=== PATIENT | female | born 1965 | race Caucasian/White ===

== ENCOUNTER 2020-03-21 18:19 | Observation (INO) | payer OTHER ==
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
[2020-03-21] MEDS ORDERED: HYDROmorphone 0.5 MG/0.5 ML Syringe IVPUSH ONE (18:53)
[2020-03-21] MEDS ORDERED: FLU VACC QS2020-21(6MOS UP)/PF 60 MCG/0.5 ML SYRINGE IM ONE (19:00)
[2020-03-21] MEDS ORDERED: Sodium Chloride 0.9% 10 ML Syringe FLUSH PRN (19:02)
[2020-03-21] MEDS ORDERED: Iopamidol 612 MG/ML 100 ML Bottle IVPUSH ONE (19:02)
[2020-03-21] MEDS ORDERED: Iopamidol 612 MG/ML 50 ML SDV IVPUSH ONE (19:02)
[2020-03-21] MEDS: Sodium Chloride 0.9% 10 ML Syringe FLUSH PRN (20:12)
[2020-03-21] MEDS ORDERED: Ibuprofen 400 MG Tab PO PRN (23:17)
[2020-03-21] MEDS ORDERED: Ondansetron 4 MG/2 ML SDV IVPUSH PRN (23:21)
[2020-03-22] MEDS: HYDROmorphone 0.5 MG/0.5 ML Syringe IVPUSH PRN ×2 (02:24→07:48)
[2020-03-22] MEDS: Sodium Chloride 0.9% 10 ML Syringe FLUSH PRN (07:51)
[2020-03-22] MEDS: Ibuprofen 400 MG Tab PO SCH ×2 (08:18→13:54)
[2020-03-22] MEDS: Acetaminophen 325 MG Tab PO SCH ×2 (08:19→13:54)
[2020-03-22] MEDS ORDERED: Rosuvastatin 10 MG Tab PO SCH (09:00)
[2020-03-22] MEDS ORDERED: VENLAFAXINE HCL 75 MG PO SCH (09:00)
[2020-03-22] MEDS ORDERED: metFORMIN 500 MG Tab PO SCH (09:00)
[2020-03-22] MEDS ORDERED: amLODIPine 5 MG Tab PO SCH (09:00)
[2020-03-22] MEDS: oxyCODONE 5 MG Tab PO PRN ×2 (10:03→15:49)
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
== END 2020-03-22 16:15 | disposition home or self-care (01) ==
LOC: JD.ED 18:19 → JD.OB 22:05
PROVIDERS: ADMIT Surgery; ATTEND Surgery
DX: S22.41XA Multiple fractures of ribs, right side, initial encounter for closed fracture (principal); S02.609A Fracture of mandible, unspecified, initial encounter for closed fracture; I10 Essential (primary) hypertension; E11.9 Type 2 diabetes mellitus without complications; Z23 Encounter for immunization; Z20.828 Contact with and (suspected) exposure to other viral communicable diseases; Z87.891 Personal history of nicotine dependence; V43.53XA Car driver injured in collision with pick-up truck in traffic accident, initial encounter
CPT/HCPCS: 36415; 70450; 71046; 71260; 72125; 73564; 74177; 80053; 83690; 85025; 87635; 90471; 90686; 94760; 96374; 96376; 97161; 99285; A9270; G0378; J1170; Q9967; 99284; G0008; U0002